=== PATIENT | male | born 1975 | race Caucasian/White ===

== ENCOUNTER → 2020-03-28 09:48 | Outpatient (BNVA) | payer OTHER, SELFPAY | PROVIDERS: PCP Internal Medicine; Referring Provider Internal Medicine; Visit Provider Physician Assistant | DX: R13.10 Dysphagia, unspecified (principal); K21.9 Gastro-esophageal reflux disease without esophagitis; F17.200 Nicotine dependence, unspecified, uncomplicated; Z71.6 Tobacco abuse counseling | CPT/HCPCS: 99212 ==

== ENCOUNTER → 2020-04-24 08:41 | Outpatient (BNVA) | payer OTHER, SELFPAY | PROVIDERS: PCP Internal Medicine; Visit Provider Physician Assistant | DX: Z76.89 Persons encountering health services in other specified circumstances (principal) ==

== ENCOUNTER → 2020-05-29 10:06 | Outpatient (BNVA) | payer OTHER, SELFPAY | PROVIDERS: PCP Internal Medicine; Visit Provider Physician Assistant | DX: Z76.89 Persons encountering health services in other specified circumstances (principal) ==

== ENCOUNTER 2020-06-06 10:26 | Outpatient (REF) | payer OTHER, SELFPAY ==
--- NOTE | 2020-06-06 10:30 | FL_ITS ---
EXAMINATION: FL BARIUM SWALLOW CLINICAL INFORMATION: Dysphagia. COMPARISON: None TECHNIQUE: Barium swallow examination is performed using fluoroscopic evaluation in addition to multiple fluoroscopic spot views. The patient is imaged both upright and prone and using both thick and thin sulfate along with effervescent granules. Fluoroscopy time: 1.3 minutes DAP: 7.14 Gycm2 Images: 13 FINDINGS: The esophageal mucosal pattern is normal. No stricture or ulceration identified. No hernia visible. The imaged portions of the stomach are normal. No reflux was elicited during the study. FL/FL barium swallow IMPRESSION: Normal exam.
== END 2020-06-06 10:27 | disposition home or self-care (01) ==
LOC: HO.XRAY 10:26
PROVIDERS: Visit Provider Physician Assistant
DX: R13.10 Dysphagia, unspecified (principal)
CPT/HCPCS: 74220

== ENCOUNTER 2021-02-04 14:43 | Emergency (ER) | payer OTHER, SELFPAY ==
[2021-02-04 15:01] VITALS: BP 138/74; PULSE 65; RESP 18; TEMP 36.7; O2SAT 96; BMI 29.0
[2021-02-04] MEDS: Ibuprofen 600 MG TABLET PO (15:10)
--- NOTE | 2021-02-04 16:30 | ED_ITS ---
HPI - General Adult General Chief complaint: Headache Stated complaint: HEADACHE SHOULDER PAIN Time Seen by Provider: 02/04/21 16:29 Source: patient Mode of arrival: ambulatory Limitations: no limitations History of Present Illness HPI narrative: 45-year-old male here today for complaints of headache. Patient reports that he started with headache few days ago. Reports having nasal congestion. Pain to left side of frontal area. Patient denies any SOB or respiratory distress. No CP, presyncope or syncope. Patient denies any dizziness or any visual changes. Patient reports that he had both of his COVID vaccines. Denies any ill contacts. Patient denies any sore throat, dysphagia, dyspepsia or odynophagia. Denies any diarrhea or vomiting. Patient denies any earache no subjective fevers. Onset (ago): day(s) Location: head and upper extremity Radiation: non-radiation Quality: aching Related Data Home Medications Medication Instructions Recorded Confirmed buprenorphine 8 mg-naloxone 2 mg 1 film BUCCAL DAILY 03/28/20 05/29/20 sublingual film (Suboxone) Previous Rx's Medication Instructions Recorded omeprazole 20 mg capsule,delayed 20 mg PO DAILY #30 cap 03/28/20 release omeprazole 20 mg capsule,delayed 20 mg PO DAILY #30 cap 04/24/20 release amoxicillin 875 mg-potassium 1 tab PO BID 7 Days #14 tab 02/04/21 clavulanate 125 mg tablet (Augmentin) cetirizine 10 mg tablet (All Day 10 mg PO DAILY PRN #20 tab 02/04/21 Allergy (cetirizine)) cyclobenzaprine 10 mg tablet 10 mg PO BEDTIME PRN #10 tab 02/04/21 fluticasone propionate 50 1 spray INTRANASAL BID #16 g 02/04/21 mcg/actuation nasal spray,suspension (Flonase Allergy Relief) ibuprofen 600 mg tablet 600 mg PO Q8H PRN #20 tab 02/04/21 Allergies Allergy/AdvReac Type Severity Reaction Status Date / Time adhesive tape [TAPE,ADHESIVE] Allergy Unknown RASH Unverified 02/16/20 17:03 latex [LATEX] Allergy Unknown UNKNOWN Unverified 02/16/20 17:03 Review of Systems Review of Systems: Constitutional : No Weight loss, No Fever, No Chills, No Night Sweats, No Fatigue, No Malaise ENT/Mouth : No Hearing loss, No Ear Pain, Nasal Congestion, No Sinus Pain, No Hoarseness, No sore throat, Rhinorrhea, No Swallowing Difficulty Eyes: No Eye Pain, No Swelling, No Redness, No Foreign Body, No Discharge, No Vision Changes Cardiovascular : No Chest Pain, No SOB, No Dyspnea on Exertion, No Orthopnea, No Edema, No Palpitations Respiratory : No Cough, No Sputum, No Wheezing, No Smoke Exposure, No Dyspnea Gastrointestinal : No Nausea, No Vomiting, No Diarrhea, No Constipation, No abdominal Pain, No Hematochezia, No Melena Genitourinary : no irregular bleeding, No Dysuria, No Urinary Frequency, No Hematuria, No Urinary Incontinence, No Urgency, No Flank Pain, No Urinary Flow Changes, No Hesitancy Musculoskeletal : No joint pain, No Myalgias, No Joint Swelling Skin : No Skin Lesions, No rash Neuro : No Weakness, No Numbness, No Paresthesias, No Loss of Consciousness, No Dizziness, No Headache Psych : No Anxiety/Panic, No Depression, No SI/HI/AH/VH, No Social Issues, Heme/Lymph: No Bruising, No Bleeding,No Lymphadenopathy Endocrine : No Polyuria, No Polydipsia, No Temperature Intolerance Yes all other systems are reviewed and are negative PMFSH Past Medical History Medical History Acid reflux Dysphagia Family History Family History Family/Other No family history of colorectal cancer Social History Social History Cigarettes Per Day: 19 Advance Directives: No Advance Directives Information Provided: No Physical Exam Vital Signs: Vital Signs: Last Vital Signs Temp 98.0 F 02/04/21 15:01 Pulse 65 02/04/21 15:01 Resp 18 02/04/21 15:01 BP 138/74 02/04/21 15:01 Pulse Ox 96 02/04/21 15:01 Body Mass Index 29.0 Const: General: healthy appearing, no acute distress and well developed Nutritional Appearance: well nourished Orientation/consciousness: patient oriented x3 HENMT: Head: Yes normal to inspection, Yes normocephalic and Yes atraumatic Ears: hearing grossly normal bilaterally and TM abnormal wth effusion General nose exam: Normal external nose present Face and sinus: Yes normal facial exam and Yes sinuses nontender Mouth: Normal oral and palatal mucosa present Throat: Yes posterior oropharynx normal Eyes: General: appearance normal, both eyes and all related structures Eyelids: Yes eyelids normal Conjunctivae: conjunctivae normal Sclerae: sclerae normal Corneas: corneas normal Pupils: Equal, round and reactive pupils present EOM: EOMs intact bilaterally Neck: Neck: Yes normal visual inspection, Yes full ROM and Yes trachea midline Thyroid: Thyroid normal Resp: Auscultation: clear to auscultation bilaterally Cardio: Rate: regular rate Rhythm: regular rhythm GI: Inspection: Yes normal to inspection and No distended Palpation (GI): Soft to palpation, not firm, nontender, no guarding and No hepatosplenomegaly present Auscultation: normal bowel sounds Skin: General skin exam: elasticity normal, turgor normal and dry skin Neuro: General: patient oriented x3 Cranial nerves: Yes Equal, round and reactive pupils present Course Course Course Narrative: 45-year-old male is here today for complaints of left-sided headache. Patient denies any dizziness, reports that the mom headache started few days ago. Denies any trauma. Patient denies any nausea or vomiting. Patient denies any dizziness. Reports to have cold symptoms. On exam bilateral ear effusion greater on left than right. Will send patient home with antibioti cs as well as Flonase and Zyrtec. Patient reports that he does have a shoulder discomfort, however he has not had any injury. The discomfort started today when he woke up. Patient was encouraged to do range of motion return if his symptoms will get worse. He was encouraged to follow-up with his PCP in 2-3 days and return if he will have fever, chills Medical Decision Making Lab Data Labs: Lab Results 02/04/21 Range/Units 17:29 COVID-19 ([facility]) Negative (Negative) COVID-19 Clin Com See Note Discharge Plan Discharge Clinical Impression: Headache Qualifiers: Headache type: unspecified Headache chronicity pattern: acute headache Intractability: not intractable Qualified Code(s): R51.9 - Headache, unspecified Otitis media Qualifiers: Otitis media type: allergic Chronicity: acute Laterality: bilateral Recurrence: non-recurrent Qualified Code(s): H65.113 - Acute and subacute allergic otitis media (mucoid) (sanguinous) (serous), bilateral Patient Disposition: Home, Self-Care Instructions: Ear Infection (ED), Allergic Rhinitis (ED) Additional Instructions: You were seen here today for headache. Your ears are infected. Please make sure you finish all you antibiotics. You are given also script for nasal spray to decrease the symptoms of congestion and script for allergy medicine. Please follow-up with your primary care provider in 2-3 days. You may return to emergency department if your symptoms will get worse or if you experience any additional concerning symptoms Prescriptions: New ibuprofen 600 mg tablet 600 mg PO Q8H PRN (Reason: pain) Qty: 20 RF: 0 fluticasone propionate [Flonase Allergy Relief] 50 mcg/actuation spray,suspension 1 spray intranasal BID Qty: 16 RF: 0 amoxicillin-pot clavulanate [Augmentin] 875-125 mg tablet 1 tab PO BID 7 Days Qty: 14 RF: 0 cetirizine [All Day Allergy (cetirizine)] 10 mg tablet 10 mg PO DAILY PRN (Reason: allergy symptoms) Qty: 20 RF: 0 cyclobenzaprine 10 mg tablet 10 mg PO BEDTIME PRN (Reason: muscle spasm) Qty: 10 RF: 0 No Action buprenorphine-naloxone [Suboxone] 8-2 mg film 1 film buccal DAILY RF: 0 omeprazole 20 mg capsule,delayed release(DR/EC) 20 mg PO DAILY Qty: 30 RF: 5 omeprazole 20 mg capsule,delayed release(DR/EC) 20 mg PO DAILY Qty: 30 RF: 5 Referrals: Annabelle Duncan MD [Primary Care Provider] - 2 days
[2021-02-04] MEDS: Amoxicillin/Potassium Clav 875 MG TABLET PO (17:34)
[2021-02-04 17:53] LABS: COVID-19 Test Negative (Negative)
== END 2021-02-04 18:22 | disposition home or self-care (01) ==
PROVIDERS: Nurse Practitioner Family; Emergency Provider Internal Medicine; PCP Internal Medicine
DX: R51.9 Headache, unspecified (principal); H65.113 Acute and subacute allergic otitis media (mucoid) (sanguinous) (serous), bilateral; Z20.822 Contact with and (suspected) exposure to COVID-19
CPT/HCPCS: 36415; 87635; 99283

== ENCOUNTER 2021-08-17 16:28 | Emergency (ER) | payer OTHER, MEDICAID, SELFPAY ==
[2021-08-17 16:30] VITALS: BP 119/82; PULSE 87; RESP 16; TEMP 36.8; O2SAT 94; BMI 27.8
--- NOTE | 2021-08-17 17:08 | ED.GENADULT ---
HPI - General Adult General Chief complaint: GI Bleed Stated complaint: hemroid popped Time Seen by Provider: 08/17/21 17:03 Source: patient Mode of arrival: ambulatory Limitations: no limitations History of Present Illness HPI narrative: Patient is a 45 year old male presenting to the emergency department today with a ruptured hemorrhoid. Patient states that he had a bowel movement that he had to push exceptionally hard for and then he wiped and saw blood. Patient states that he is aware that he has hemorrhoids but they have not bled before. Patient denies any dizziness, lightheadedness, abdominal pain, nausea, vomiting, fever, chills, blurry vision, double vision, loss of vision, chest pain, difficulty breathing, shortness of breath, back pain, night sweats, pain with urination, increased urinary frequency, increased urinary urgency, blood in his urine, syncope or a near syncopal episode, recent trauma or falls, bowel incontinence, bladder incontinence, bowel retention, bladder retention, or any other complaints at this time. Onset (ago): hour(s) Location: buttocks Radiation: non-radiation Severity: mild Severity scale (1-10): 2 Quality: dull Pain Consistency: intermittent Relieving factors: none Exacerbating factors: none Associated symptoms: denies other symptoms Treatments prior to arrival: none Related Data Home Medications Medication Instructions Recorded Confirmed buprenorphine 8 mg-naloxone 2 mg 1 film BUCCAL DAILY 03/28/20 05/29/20 sublingual film (Suboxone) Previous Rx's Medication Instructions Recorded omeprazole 20 mg capsule,delayed 20 mg PO DAILY #30 cap 03/28/20 release omeprazole 20 mg capsule,delayed 20 mg PO DAILY #30 cap 04/24/20 release amoxicillin 875 mg-potassium 1 tab PO BID 7 Days #14 tab 02/04/21 clavulanate 125 mg tablet (Augmentin) cetirizine 10 mg tablet (All Day 10 mg PO DAILY PRN #20 tab 02/04/21 Allergy (cetirizine)) cyclobenzaprine 10 mg tablet 10 mg PO BEDTIME PRN #10 tab 02/04/21 fluticasone propionate 50 1 spray INTRANASAL BID #16 g 02/04/21 mcg/actuation nasal spray,suspension (Flonase Allergy Relief) ibuprofen 600 mg tablet 600 mg PO Q8H PRN #20 tab 02/04/21 cephalexin 500 mg capsule 500 mg PO Q6H 7 Days #28 cap 08/17/21 sitz bath ([facility]x Sitz Bath) #1 ea 08/17/21 Allergies Allergy/AdvReac Type Severity Reaction Status Date / Time adhesive tape [TAPE,ADHESIVE] Allergy Unknown RASH Unverified 02/16/20 17:03 latex [LATEX] Allergy Unknown UNKNOWN Unverified 02/16/20 17:03 Review of Systems Constitutional: Constitutional: Reports no additional constitutional complaints, Denies chills, Denies fever(s) and Denies night sweats Eyes: Eyes: Reports no additional eye complaints, Denies blurry vision, Denies change in vision, Denies diplopia, Denies eye discharge, Denies loss of vision and Denies eye pain ENT: Denies dizziness Cardiovascular: Cardiovascular: Reports no additional cardiovascular complaints, Denies chest pain, Denies lightheadedness, Denies Loss of Consciousness and Denies dyspnea Respiratory: Respiratory: Reports no additional respiratory complaints and Denies dyspnea Gastrointestinal: Gastrointestinal: Reports no additional gastrointestinal complaints, Denies abdominal pain, Denies melena, Denies hematochezia, Denies change in bowel habits and Denies change in stool character Comments: bright red blood in stools Genitourinary: Genitourinary: Reports no additional male genitourinary complaints, Denies hematuria, Denies oliguria, Denies difficulty urinating, Denies dysuria, Denies urinary frequency, Denies urinary hesitancy, Denies urinary incontinence and Denies urinary urgency Musculoskeletal: Musculoskeletal: Reports no additional musculoskeletal complaints, Denies numbness and Denies tingling Neurologic: Denies dizziness, Denies loss of vision, Denies numbness and Denies tingling Psychiatric: Psychiatric: Reports no additional psychiatric complaints Endocrine: Endocrine: Reports no additional endocrine complaints Hematologic/Lymphatic: Hematologic/Lymphatic: Reports no additional hematologic/lymphatic complaints Allergic/Immunologic: Allergic/Immunologic: Reports no additional allergic/immunologic complaints PMFSH Past Medical History Attestation statement: The following information was validated with the patient. Source: old records reviewed Medical History Acid reflux Dysphagia Family History Family History Family/Other No family history of colorectal cancer Social History Social History Cigarettes Per Day: 19 Advance Directives: No Advance Directives Information Provided: No Physical Exam ED Vital Signs: Vital Signs - 24 hr 08/17/21 16:30 Temperature 98.2 F Pulse Rate 87 Respiratory Rate 16 Blood Pressure 119/82 Pulse Oximetry 94 BMI result Body Mass Index 27.8 Const General: cooperative, no acute distress, alert and awake Nutritional Appearance: well nourished Orientation/consciousness: patient oriented x3 Limitations: no limitations HENMT Head: Yes normal to inspection and Yes atraumatic Ears: hearing grossly normal bilaterally and external ears normal General nose exam: Normal external nose present, no nasal discharge noted and no epistaxis Face and sinus: Yes normal facial exam, No abrasion and No laceration Mouth: Normal oral and palatal mucosa present, no drooling and no muffled voice Eyes General: appearance normal, both eyes and all related structures Periorbital: periorbital findings normal Eyelids: Yes eyelids normal Conjunctivae: conjunctivae normal Pupils: Equal, round and reactive pupils present EOM: EOMs intact bilaterally Neck Neck: Yes normal visual inspection, Yes full ROM and Yes no lymphadenopathy Chest Chest palpation & inspection: normal inspection of the chest Resp Effort & Inspection: normal respiratory effort and able to speak in complete sentences Auscultation: clear to auscultation bilaterally Cardio Rate: regular rate Rhythm: regular rhythm GI Inspection: Yes normal to inspection Rectal Exam - Male: Yes hemorrhoids Neuro General: patient oriented x3 and moves all extremities Cranial nerves: Yes Equal, round and reactive pupils present Cognition (Neuro): normal cognition Motor exam (neuro): 5/5 motor strength present throughout Sensory Exam: Normal double simultaneous stimulation for sensation Coordination: [id number] test normal Extrem General: Yes normal to inspection, Yes full ROM and Yes capillary refill normal Psych Appearance: grossly normal Mental Status: mental status grossly normal Affect: normal affect Attitude: cooperative Thought process: Normal thought process present Thought content: Normal thought content present Insight: Good insight present (Psych) Medical Decision Making MDM Narrative Medical decision making narrative: Patient is a 45 year old male presenting to the emergency department today with hemorrhoids. Patient's physical exam showed a large hemorrhoid at the 1 o'clock position of the anus with minimal bleeding. I explained my physical exam findings to the patient. I answered all questions asked by the patient. I stressed the importance of the patient using a Sitz bath and not straining with bowel movements. I stressed the importance of the patient taking his medication as prescribed. I stressed the importance of the patient following up with his primary care provider and a general surgeon. I stressed the importance of the patient returning to the emergency department immediately if his symptoms were to worsen or if he were to develop any dizziness, shortness of breath, difficulty breathing, chest pain, blurry vision, loss of vision, nausea, vomiting, abdominal pain, fever, chills, back pain, or any other complaints. Patient verbalized agreement and understanding with this treatment plan and discharge. Differential Diagnosis Differential Diagnosis: hemorrhoids Medical Records Medical records reviewed: Yes I reviewed the patient's medical records. Discharge Plan Discharge Clinical Impression: Hemorrhoid Patient Disposition: Home, Self-Care Instructions: Hemorrhoids (ED), Sitz Bath (DC) Additional Instructions: Follow up with your primary care provider. Return to the emergency department immediately if your symptoms worsen or if you develop any dizziness, shortness of breath, difficulty breathing, chest pain, blurry vision, loss of vision, nausea, vomiting, abdominal pain, fever, chills, back pain, or any other complaints. Prescriptions: New cephalexin 500 mg capsule 500 mg PO Q6H 7 Days Qty: 28 0RF (DME) Carex Sitz Bath Kit See Rx Instructions .Route Qty: 1 0RF Rx Instructions: As directed No Action ibuprofen 600 mg tablet 600 mg PO Q8H PRN (Reason: pain) Qty: 20 0RF fluticasone propionate [Flonase Allergy Relief] 50 mcg/actuation spray,suspension 1 spray intranasal BID Qty: 16 0RF Rx Instructions: administer into each nostril amoxicillin-pot clavulanate [Augmentin] 875-125 mg tablet 1 tab PO BID 7 Days Qty: 14 0RF cetirizine [All Day Allergy (cetirizine)] 10 mg tablet 10 mg PO DAILY PRN (Reason: allergy symptoms) Qty: 20 0RF cyclobenzaprine 10 mg tablet 10 mg PO BEDTIME PRN (Reason: muscle spasm) Qty: 10 0RF buprenorphine-naloxone [Suboxone] 8-2 mg film 1 film buccal DAILY 0RF omeprazole 20 mg capsule,delayed release(DR/EC) 20 mg PO DAILY Qty: 30 5RF omeprazole 20 mg capsule,delayed release(DR/EC) 20 mg PO DAILY Qty: 30 5RF Referrals: Contreras Vora MD [Physician] - 2 days Physician,Kristine Tineo [Physician] - 2 days (Follow up with your PCP. ) Interventions: ED Discharge Assessment Last Done: 08/17/21 17:52 Discharge Date/Time: 08/17/21 17:54 Print Language: Cambodian
== END 2021-08-17 17:54 | disposition home or self-care (01) ==
LOC: HO.ED 17:42
PROVIDERS: Emergency Provider Emergency Medicine
DX: K64.9 Unspecified hemorrhoids (principal); K62.5 Hemorrhage of anus and rectum
CPT/HCPCS: 99283

== ENCOUNTER → 2021-08-29 13:33 | Outpatient (BNVA) | payer OTHER, SELFPAY | PROVIDERS: Referring Provider Internal Medicine; Visit Provider Surgery | DX: K64.5 Perianal venous thrombosis (principal) | CPT/HCPCS: 46600; 99202 ==

== ENCOUNTER 2021-12-31 16:19 | Emergency (ER) | payer MEDICAID, SELFPAY | END 2021-12-31 17:19 | disposition left against medical advice (07) | PROVIDERS: Emergency Provider Emergency Medicine; PCP Internal Medicine | DX: M79.89 Other specified soft tissue disorders (principal); F17.210 Nicotine dependence, cigarettes, uncomplicated ==

== ENCOUNTER 2025-04-07 09:29 | Outpatient (REF) | payer OTHER, SELFPAY ==
--- NOTE | ~2025-04-07 | XR_ITS ---
Indication: CR Xr Tibia Fibula Lt 2v TECHNIQUE: AP and lateral views left lower extremity, tibia and fibula COMPARISON: March 27, 2017 INDICATION: S80.12XA - Contusion of left lower leg, initial encounter FINDINGS: No acute fracture or deformity is identified. The appearance similar to the prior. No other abnormalities are seen. XR/XR tibia fibula LT 2V IMPRESSION: Unremarkable left tibia and fibula. Electronically signed by: You Nguyen MD 04/07/2025 10:50 AM RAMO
== END 2025-04-07 09:30 | disposition home or self-care (01) ==
LOC: HO.HMGCX 09:29
PROVIDERS: PCP Internal Medicine; Visit Provider Physician Assistant
DX: S80.12XA Contusion of left lower leg, initial encounter (principal); S30.0XXA Contusion of lower back and pelvis, initial encounter; V98.8XXA Other specified transport accidents, initial encounter
CPT/HCPCS: 73590; 99202

== ENCOUNTER 2025-04-07 09:29 | Outpatient (AMB) | payer OTHER, SELFPAY ==
[2025-04-07 10:12] VITALS: BP 122/70; PULSE 72; TEMP 36.6; O2SAT 97; BMI 27.6
--- NOTE | 2025-04-07 10:12 | AM.OFFWIN_ITS ---
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, boxes fell on top of pt Intake Note: pt presents with work related injury- pt states he has left lower leg pain from a pallet hitting him that was on a forklift that a coworker was driving then he fell over and many boxes fell on him- time of injury 6:30am this morning Allergies adhesive tape (TAPE,ADHESIVE) Allergy (Unknown, Verified 04/07/25 10:14) RASH latex (LATEX) Allergy (Unknown, Verified 04/07/25 10:14) UNKNOWN Do you need a note to return to daycare/school/sports/work: Yes HPI HPI Comments History of Present Illness Details This is a 49-year-old male presenting for a work place injury that occurred this morning at 6:30 a.m.. 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 Patient fell to his right side onto the ground and the pallets and boxes fell off the forklift onto the left side of his back. Patient denies any head injury or loss of consciousness as a result of this injury. Patient is complaining of left low back pain and left lower leg pain. He has not taken any medication for treatment of his symptoms. 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 [facility] Medical History (Updated 04/07/25 @ 10:50 by Dannielle Forbes PA-C) External thrombosed hemorrhoids Acid reflux Dysphagia Family History Family/Other No family history of colorectal cancer Social History Cigarettes Per Day: 19 Review of Systems Const All systems reviewed & are unremarkable except as noted in HPI and below Reports no additional complaints, Denies headache(s) and Denies weakness Eyes Reports no additional complaints, Denies change in vision and Denies seeing flashes ENT Reports no additional complaints and Denies headache(s) Card Reports no additional complaints Resp Reports no additional complaints GI Denies nausea and Denies vomiting Reports no additional complaints Musc Reports back pain, Denies joint swelling and Reports other (left leg pain) Skin/Breast Reports system reviewed and no additional complaints, except as documented Neuro Reports no additional complaints, Denies headache(s) and Denies weakness Psych Reports no additional complaints Endo Reports no additional complaints Aller/Immun Reports no additional complaints Physical Exam Vital Signs: Last Vital Signs Temp 97.9 F 04/07/25 10:12 Pulse 72 04/07/25 10:12 BP 122/70 04/07/25 10:12 Pulse Ox 97 04/07/25 10:12 Oxygen Delivery Method Room Air 04/07/25 10:12 BMI result Body Mass Index 27.6 Const General: cooperative, healthy appearing, no acute distress, well developed, alert, awake and Physically active; No acute distress Nutritional Appearance: well nourished Orientation/consciousness: patient oriented x3 Limitations: no limitations HEENT Head: Yes normal to inspection, Yes normocephalic, Yes atraumatic and No abrasion Eyes General: appearance normal, both eyes and all related structures Visual Artis: normal visual artis by confrontation Alignment and Position: alignment normal Eyelids: Yes eyelids normal Conjunctivae: conjunctivae normal Pupils: Equal, round and reactive pupils present and Pupils normal by confrontation EOM: EOMs intact bilaterally Direct Ophthalmoscopy: no photophobia Neck Neck: Yes normal visual inspection and Yes full ROM Cardio Rate: regular rate Rhythm: regular rhythm Back/Spine/Pelvis Cervical Spine: normal cervical lordosis, cervical ROM normal, No cervical muscular tenderness and No Cervical spine tenderness Thoracic/Lumbar Spine: thoracic and lumbar spine normal to inspection, No Thoracic/lumbar spine scar(s), thoraco-lumbar ROM normal, No pain with thoraco- lumbar ROM, paraspinal muscle tenderness on the left in the lower thoracic and in the upper thoracic, No thoracic spinal tenderness and No lumbar spinal tenderness Sacroiliac joints: bilaterally nontender Skin Other: linear abrasion left lateral lower leg; no active bleeding Trauma: abrasion Wounds: no wounds Neuro General: patient oriented x3 Cranial nerves: Yes Equal, round and reactive pupils present Cognition (Neuro): normal cognition Extrem Left lower extremity: full ROM, no joint enlargement, lower leg Details: tenderness (left lateral lower leg tender to palpation; left ankle ROM intact), no edema and abrasion; no localized swelling, no lacerations, no ecchymosis, no deformity and no unusual warmth and ankle Details: normal to inspection, no ed zayra and normal ROM; no tenderness and no swelling; no edema Psych Appearance: grossly normal Mental Status: mental status grossly normal Insight: Good insight present (Psych) Judgement: Good judgement present (Psych) Results Reviewed Results Reviewed: No acute findings left tibia/fibula imaging. Assessment & Plan Assessment & Plan (1) Contusion of leg, left: Comment: There are no acute findings noted on imaging of the left tibia or fibula. Patient is ambulating independently. Code(s): S80.12XA - Contusion of left lower leg, initial encounter Qualifiers: Encounter type: initial encounter Qualified Code(s): S80.12XA - Contusion of left lower leg, initial encounter Plan: Naprosyn 500 mg b.i.d. times 7-10 days, methocarbamol q.i.d. PRN. Work note provided until ThursdayApril 11. (2) Contusion of lower back: Comment: Patient will be discharged home with an anti-inflammatory and muscle relaxant for ongoing management of his discomfort. Patient is instructed to follow up with his work place medical department on Thursday for a re-evaluation of his injuries. Work note provided until ThursdayApril 11. Code(s): S30.0XXA - Contusion of lower back and pelvis, initial encounter Qualifiers: Encounter type: initial encounter Qualified Code(s): S30.0XXA - Contusion of lower back and pelvis, initial encounter Plan: Naprosyn 500 mg b.i.d. times 7-10 days, methocarbamol q.i.d. PRN. Work note pr ovided until ThursdayApril 11. Orders: Orders XR tibia fibula LT 2V Today S80.12XA - Contusion of left lower leg, initial encounter Coding Level of Care Code New Pt Level 3 (82538) Diagnoses Contusion of left lower extremity, initial encounter S80.12XA Encounter type: initial encounter Contusion of lower back, initial encounter S30.0XXA Encounter type: initial encounter Time Spent (min) 25
--- OUTSIDE RECORDS SUMMARY | 2025-04-07 10:44 | XMS_ITS | Clinical Summary ---
Author Organization [facility] Address [address] [place] [address] Care Team Providers Care Final Inspector Truck Trailer Name Role Phone Jennifer Ramos PA-C Primary Care Provider Source Comments PLEASE NOTE, if this patient is a minor, it may be UNLAWFUL to discuss sensitive information that is contained in these records (such as FAMILY PLANNING, MENTAL HEALTH or SUBSTANCE ABUSE) with the minor patient's parent or other person without the patient's specific authorization.[facility] Allergies No known active allergies Medications calcium carbonate (TUMS) 500 mg calcium (1,250 mg) chewable tabletIndication s:Gastroesophage al reflux disease without esophagitis Place 1 Tablet into mouth, chew and swallow 3 (three) times daily. 90 Tablet 12/06/2024 Active ibuprofen 800 mg tabletIndication s:Pain of left lower extremity Take 1 Tablet by mouth 3 (three) times daily as needed for pain. 60 Tablet 1 12/06/2024 Active Active Problems Problem Noted Date Diagnosed Date Right ankle pain 02/02/2015 Overview (12/06/2024): Xray done 07/04/24 in ED: XR Foot 3+ Views Right Final Result FINDINGS/IMPRESSION: Mild interphalangeal joint space loss and degenerative changes at the 1st MTP. No acute fracture. Anatomic alignment. Calcaneal spurs Vivian Xray 2014 small calcaneal plantar spur History of behavioral and mental health problems 06/22/2014 Overview (06/22/2014): Pt admitted to [facility] 04/17-04/21/14. Dx 1. Mood disorder, NOS, 2. Opiate abuse. Discharge with Clonidine 0.1mg Q4HR PRN agitation, Seroquel 50mg p.o BID and 200mg PO, Hydroxyzine 25mg PO at bedtime PRN insomnia, Hydrocortisone cream 1% BID PRN for itching. Pt scheduled to see Renetta Ramos at [facility] on May 01 at 12:24, Harriet Li May 22 at 2:30pm. Anxiety and depression Overview (11/09/2014): Seeing [facility] Insomnia Immunizations Immunization Administration Dates Next Due Hep B,adult,adjuvanted (HEPLISAV) 12/06/2024 PNEUMOCOCCAL CONJUGATE PCV 20 (Prevnar 20) 12/06 TDAP 12/06/2024 Family History Medical History Relation Name Comments Diabetes Father Heart Problems Father Stroke Father Heart Problems Mother Stroke Mother Relation Name Status Comments Father Mother Social History Tobacco Use Types Packs/Day Years Used Date Smoking Tobacco: Some Days Cigarettes Passive Smoke Exposure: Never Smokeless Tobacco: Current Tobacco Cessation:Ready to Q uit: Not Asked; Counseling Given: Not Answered Alcohol Use Standard Drinks/Week Comments No 0 (1 standard drink = 0.6 oz pur e alcohol) Social Connections Answer Date Recorded How often do you feel lonely or isolated from th ose around you? 2 12/06/2024 Financial Resource Strain Answer Date R ecorded Hard to pay for: Food 1 12/06/2024 Stress Answer Date Recorded Do you feel these kinds of stress these days? 1 12/06/2024 Physical Activity Answer Date Recorded Physical Activity 0 08/08/2023 Food Insecurity Answer Date Recorded Hard to pay for: Food 1 12/06/2024 Transportation Needs Answer Date Record ed Hard to pay for: Transportation 1 12/06/2024 Housing Stability Answer Date Recorded Hard to pay for: Rent/Mortgage payment 1 12/06/2024 Safety and Environment Answer Date Smith rded Safety 0 08/08/2023 Utilities Answer Date Recorded Hard to pay for: Utilities 1 12/06 Employment Answer Date Recorded Stress 0 02/17/2024 Sex and Gender Information Value Date Recorded Sex Assigned at Male 08/10/2023 12:33 PM PDT Legal Sex Male 11:36 AM PDT Gender Identity Male 08/10/2023 12:33 PM PDT Sexual Orientation Straight 08/10/2023 12 :33 PM PDT Last Filed Vital Signs Vital Sign Reading Time Taken Comments Blood Pressure 108/74 12/06/2024 10:18 AM EDT Pulse 79 12/06/2024 10:18 AM EDT Temperature 36.7 C (98 F) 08/08/2023 9:22 AM EST Respiratory Rate 18 12/06/2024 10:18 AM EDT Oxygen Saturation 97% 12/06/2024 10:18 AM EDT Inhaled Oxygen Concentration - - Weight 69.9 kg (154 lb) 12/06/2024 10:18 AM EDT Height 171.5 cm (5' 7.5 ) 04/16/2015 1:57 PM EST Body Mass Index 23.76 04/16/2015 1:57 PM EST Plan of Treatment Health Maintenance Due Date Last Done Comments Hepatitis C Screening 1976 Lipid Screening 1976 HIV Screening 11/07/1991 Tobacco Cessation Counseling (#1) 09/19/2015 CT Colonography 2021 Colonoscopy 2021 Colorectal Cancer Screening 2021 FIT/gFOBT 2021 Fecal DNA 2021 Flexible Sigmoidoscopy 2021 Alcohol and Drug Screen 06/01/2024 12/08/2014, 09/19 Imm-Hepatitis B (2 of 2 - Cp G 2-dose series) 01/03/2025 12/06/2024 [id number] ( - season) 2025 Imm-Influenza (#1) 2025 04/16/2015 (M anaged by Outside Provider) Depression Monitoring 03/08/2025 12/06/2024 Annual Wellness (Adult): Ind icated (All Coverage) 12/06/2025 12/06/2024 Anxiety Screening 12/06/2025 12/06/2024 Hypertension Screening (#1) 12/06/2025 Diabetes Screening 01/03/2028 01/02/2025, 0 01/01/2025, 12/31/2024, Additional history exists Imm-DTaP/Tdap/Td (2 - Td or Tdap) 12/06/2034 025, 08/03/2006 Imm-Pneumococcal Completed 12/06/2024 Procedures Procedure Name Priority Date/Time Associated Diagnosis Comments REFERRAL SCANNED DOCUMENT 01/16/2025 3:00 AM EDT COMPREHENSIVE METABOLIC PANEL Routine 12/19/2024 8:47 AM EDT Normocytic anemia from Last 3 Months or Most Recently Relevant to Health Maintenance Results * REFERRAL SCANNED DOCUMENT (01/16/2025 3:00 AM EDT) 01/16/2025 3:00 AM EDT Victorina Armstrong NP SCAN REFERRAL Final Result * COMPREHENSIVE METABOLIC PANEL Routine (12/19/2024 8:47 AM EDT) GLUCOSE 92 65 - 99 mg/dL [facility] Comment: Fasting reference interval UREA NITROGEN (BUN) 13 7 - 25 mg/dL [facility] CREATININE (blood) 0.90 0.60 - 1.29 mg/dL [facility] EGFR 105 > OR = 60 mL/min/1. 73m2 [facility] BUN/CREATININE RATIO SEE NOTE: [facility] Comment: Not Reported: BUN and Creatinine are within reference range. SODIUM 142 135 - 146 mmol/L [facility] POTASSIUM 4.7 3.5 - 5.3 mmol/L [facility] CHLORIDE 105 98 - 110 mmol/L [facility] CARBON DIOXIDE 32 20 - 32 mmol/L [facility] CALCIUM 9.1 8.6 - 10.3 mg/dL [facility] PROTEIN, TOTAL 6.8 6.1 - 8.1 g/dL [facility] ALBUMIN 4.1 3.6 - 5.1 g/dL [facility] GLOBULIN 2.7 1.9 - 3.7 g/dL (calc) [facility] ALBUMIN/GLOBULI N RATIO 1.5 1.0 - 2.5 (calc) [facility] BILIRUBIN, TOTAL 0.3 0.2 - 1.2 mg/dL [facility] ALKALINE PHOSPHATASE 57 36 - 130 U/L [facility] AST 19 10 - 40 U/L [facility] ALT 13 9 - 46 U/L [facility] Blood Blood / Unknown 12/19/2024 8 :47 AM EDT 12/19/2024 8:49 AM EDT Narrative [facility] - 12/20/2024 1:54 PM EDT FASTING:YES us Victorina Armstrong MANAGER DRUG SAFETY LAB - BLOOD DRAW Edited Resu lt - Final [facility] [address] [address], [facility] [address] [place] [address] from Last 3 Months or Most Recently Relevant to Health Maintenance Insurance [facility] SAFETY NET DENTAL [address] [facility] Care Teams Final Inspector Truck Trailer Relationship Specialty Start Date End Date Jennifer Ramos PA-C [address] [place] [address] PCP - General Internal Medicine 10/15/23
--- OUTSIDE RECORDS SUMMARY | 2025-04-07 10:44 | XMS_ITS | Clinical Summary ---
Author Organization [facility] Address [address] [place] [address] Phone Care Team Providers Care Director Security Risk Management Name Role Phone Victorina Armstrong Primary Care Provider [phone] Allergies No known active allergies Medications hydrOXYzine pamoate (VISTARIL) 25 mg capsule Take 1 capsule (25 mg total) by mouth 3 (three) times a day if needed for anxiety. Active cloNIDine (CATAPRES) 0.1 mg tablet Take 1 tablet (0.1 mg total) by mouth 3 (three) times a day. Active methadone (DOLOPHINE) 10 mg/5 mL solution Take 62.5 mL (125 mg total) by mouth 1 (one) time each day. Take it in AM Dose confirmed with [facility] Active methadone (DOLOPHINE) 10 mg/5 mL solution Take 37.5 mL (75 mg total) by mouth 1 (one) time each day with dinner. Active Active Problems Problem Noted Date Diagnosed Date Calculus of gallbladder with out cholecystitis without obstruction 01/02/2025 Acute gallstone pancreatitis 12/30/2024 Encounters Date Type Department Care Team Description 01/16/2025 10:45 AM EDT Office Visit General Surgery - [place] [address] [facility] [address] [place] [address] William Whelan MD History of laparoscopic cholecystectomy (Primary Dx) from Last 3 Months Surgical History Surgery Date Site/Laterality Comments OTHER SURGICAL HISTORY PROCEDURE: DENIES PREVIOUS SURGERY CHOLECYSTECTOMY Medical History Medical History Date Comments Leg edema 01/24/2014 DX:Leg edema Family History Relation Name Status Comments Father DM Mother DM Social History Tobacco Use Types Packs/Day Years Used Date Smoking Tobacco: Former Cigarettes Tobacco Cessation:Counseling Given: Not Answered Alcohol Use Standard Drinks/Week Comments Not Currently 0 (1 standard drink = 0.6 oz pur e alcohol) Interpersonal Safety Answer Date Record ed Physical Abuse Unrecognized value 12/31/2024 Verbal Abuse Unrecognized value 12/31/2024 Sex and Gender Information Value Date Recorded Sex Assigned at Male 07/04/2024 9:53 PM EST Legal Sex Male 8:41 PM EST Gender Identity Male 07/04/2024 9:53 PM EST Sexual Orientation Straight 07/04/2024 9: 53 PM EST Obstetrics History Last Filed Vital Signs Vital Sign Reading Time Taken Comments Blood Pressure 101/64 01/16/2025 10:30 AM EDT Pulse 71 01/16/2025 10:30 AM EDT Temperature 36.5 C (97.7 F) 01/16/2025 10:30 AM EDT Respiratory Rate 18 01/02/2025 2:43 PM EDT Oxygen Saturation 97% 01/02/2025 2:43 PM EDT Inhaled Oxygen Concentration - - Weight 70 kg (154 lb 6.4 oz) 01/16/2025 10:30 AM EDT Height 172.7 cm (5' 8 ) 01/16/2025 10:30 AM EDT Body Mass Index 23.48 01/16/2025 10:30 AM EDT Plan of Treatment Health Maintenance Due Date Last Done Comments Colorectal Cancer Screening: Colonoscopy 1976 Hepatitis A Vaccines (1 of 2 - Risk 2-dose series) 11/07/1995 Cholesterol Screening (Lipid Panel) 06/26/2023 HIV Screening 06/26/2023 Hepatitis C Screening 06/26/2023 Social Influencers of Health Screening 06/26/2023 Depression Screening 06/01/2024 Hepatitis B Vaccines (2 of 2 - CpG 2-dose series) 01/03/2025 12/06/2024 COVID-19 Vaccine (1 - 2023-2 5 season) 2025 Influenza Vaccine (#1) 2025 DTaP,Tdap,and Td Vaccines (3 - Td or Tdap) 12/06/2034 12/06/2024, 08/03/2006 RSV Immunization Adult Patients (1 - 1-dose 75+ series) 11/07/2051 Pneumococcal Vaccine: Pediatrics (0 to 5 Years) and At-Risk Patients (6 to 49 Years) Aged Out 12/06/2024 No longer eligible b ased on patient's age to complete this topic HIB Vaccines Aged Out No longer eligi ble based on patient's age to complete this topic HPV Vaccines Aged Out No longer eligi ble based on patient's age to complete this topic IPV Vaccines Aged Out No longer eligi ble based on patient's age to complete this topic MMR Vaccines Aged Out No longer eligi ble based on patient's age to complete this topic Meningococcal ACWY Vaccine Aged Out N o longer eligible based on patient's age to complete this topic Meningococcal B Vaccine Aged Out No l onger eligible based on patient's age to complete this topic RSV Immunization Patients Under 20 months Aged Out No longer eligible b ased on patient's age to complete this topic Varicella Vaccines Aged Out No longer eligible based on patient's age to complete this topic Medical Devices Implanted Type Area Preparation Department Supervisor Device Identifier Shelf Expiration Date Model / Serial / Lot Kit Surgiflo W 2000 Units Ster Lyo - Sna - [id number] Implanted:Qty: 1 on 01/02/2025 by William Whelan MD at [facility] Hemostasis N/A: Abdomen [employer] 02/28/2026 [id number] / [id number] / [id number] Insurance MEDICAID - [place] Advance Directives * Full Code - Default (Latest Code Status on File) Date Activated Date Inactivated Comments 12/30/2024 12:00 PM 01/02/2025 8:21 PM This is order is used when code status has not been discussed with the patient, or code status is otherwise unknown/unconfirmed To update the patient's code status, place a code status order. Do not modify or discontinue any currently active code status orders. Care Teams Director Security Risk Management Relationship Specialty Start Date End Date Victorina Armstrong [address] [place] [address] PCP - General 12/07/24
== END 2025-04-07 11:01 | disposition home or self-care (01) ==
PROVIDERS: PCP Internal Medicine; Visit Provider Physician Assistant
DX: S80.12XA Contusion of left lower leg, initial encounter (principal); S30.0XXA Contusion of lower back and pelvis, initial encounter

== ENCOUNTER → 2025-04-07 10:34 | Outpatient (BNV) | payer OTHER, SELFPAY | PROVIDERS: PCP Internal Medicine; Visit Provider Radiology Diagnostic Radiology | DX: S80.12XA Contusion of left lower leg, initial encounter (principal) | CPT/HCPCS: 73590 ==